=== PATIENT | female | born 1945 | race Caucasian/White ===

== ENCOUNTER 2022-08-25 14:01 | Emergency (ER) | payer MEDICARE, OTHER ==
[2022-08-25 14:26] LABS: BILIRUBIN,URINE NEGATIVE (NEGATIVE); CLARITY,URINE CLEAR; COLOR,URINE YELLOW; GLUCOSE, URINE (UA) NEGATIVE (NEGATIVE); KETONES,URINE NEGATIVE (NEGATIVE); LEUKOCYTE ESTERASE ,URINE NEGATIVE (NEGATIVE); NITRITE,URINE NEGATIVE (NEGATIVE); PROTEIN,URINE NEGATIVE (NEGATIVE)
[2022-08-25 14:29] VITALS: BP_SYST 121; BP_SYST 139; BP_SYST 161; BP_DIAS 71; BP_DIAS 73; BP_DIAS 74
[2022-08-25 14:30] LABS: BACTERIA,URINE TRACE /HPF; RBC,URINE RARE /HPF
[2022-08-25] MEDS ORDERED: NS IV 1000 ML 1,000 ML IV STA (14:38)
[2022-08-25] MEDS ORDERED: KETOROLAC 15 MG/ML VIAL IVP STA (14:38)
[2022-08-25 14:47] LABS: BASOPHILS % (AUTO) 0 % (0-10); EOSINOPHILS % (AUTO) 1 % (0-10); HEMATOCRIT 46 % (35-52); HEMOGLOBIN 15.4 g/dL (11.5-16.0); LYMPHOCYTES # (AUTO) 2.2 10^3/uL (1.0-4.0); LYMPHOCYTES % (AUTO) 26 % (12-44); MEAN CORPUSCULAR HEMOGLOBIN 29 pg (25-34); MEAN CORPUSCULAR HGB CONC 33 g/dL (32-36); MEAN CORPUSCULAR VOLUME 86 fL (80-99); MEAN PLATELET VOLUME 12.6 fL (9.0-12.2); MONOCYTES # (AUTO) 0.8 10^3/uL (0.0-1.0); MONOCYTES % (AUTO) 10 % (0-12); NEUTROPHILS # (AUTO) 5.3 10^3/uL (1.8-7.8); NEUTROPHILS % (AUTO) 63 % (42-75); PLATELET COUNT 199 10^3/uL (130-400); WHITE BLOOD COUNT 8.3 10^3/uL (4.3-11.0)
[2022-08-25 14:49] LABS: CALCIUM 10.8 MG/DL (8.5-10.1); CREATININE SERUM 0.9 MG/DL (0.60-1.30); POTASSIUM 3.1 MMOL/L (3.6-5.0)
[2022-08-25 14:50] LABS: ALBUMIN 4.4 GM/DL (3.2-4.5); BILIRUBIN,TOTAL 0.9 MG/DL (0.1-1.0); TOTAL PROTEIN 7.6 GM/DL (6.4-8.2)
[2022-08-25 14:53] LABS: INR 1.1 (0.8-1.4); PROTHROMBIN TIME PATIENT 14.3 SEC (12.2-14.7)
[2022-08-25 14:58] LABS: MAGNESIUM 1.2 MG/DL (1.6-2.4)
--- NOTE | 2022-08-25 15:04 | ED General ---
General Chief Complaint: Back Problems Stated Complaint: ARRHYTHMIA; LETHARGY; BACK PAIN Nursing Triage Note: CHRONIC BACK PAIN AND WAS SENT HERE FROM URGENT CARE FOR AN IRREGULAR HEART RHYTHM. PT HAS MUTLIPLE CHRNOIC ISSUES SHE IS BRINGING UP. Source of Information: Patient, Family (daughter) History of Present Illness Date Seen by Provider: Aug 25, 2022 Time Seen by Provider: 14:05 Initial Comments 77-year-old female presenting with complaints of 1 week of right "kidney" pain. She has chronic back pain but states this pain is different. She also has been coughing for the last week but states that she feels like that is improving. She has not taken anything for the kidney pain as she states that it comes and goes. She denies any burning or pain with urination. She has chronic back pain that is worse with laying flat and certain movements. Timing/Duration: 1 Week Severity: Severe Modifying Factors: worse with Movement; improves with Other (pain in kidney area comes and goes sporadically without reason) Associated Systoms: No Chest Pain; Cough; No Diaphoresis; Fever/Chills; No Loss of Appetite; Malaise; No Nausea/Vomiting, No Rash, No Seizure; Shortness of Air; No Syncope; Weakness Allergies and Home Medications Allergies Coded Allergies: naproxen (Verified Allergy, Severe, Rash, 08/25/22) Patient Home Medication List Home Medication List Reviewed: Yes Review of Systems Review of Systems Constitutional: see HPI EENTM: nose congestion Respiratory: cough (improving), short of breath; No stridor, No wheezing Cardiovascular: No chest pain Gastrointestinal: No nausea, No vomiting Genitourinary: see HPI, frequency, incontinence (chronic) Musculoskeletal: see HPI Skin: No change in color, No rash Psychiatric/Neurological: Anxiety Past Xjbzpzv-Hauagw-Ozhcjr Hx Patient Social History Tobacco Use?: No Use of E-Cig and/or Vaping dev: No Substance use?: No Alcohol Use?: No Pt feels they are or have been: No Past Medical History Surgery/Hospitalization HX: Chronic back pain, anxiety Physical Exam Vital Signs Vital Signs - First Documented 08/25/22 14:08 Temp 36.4 Pulse 88 Resp 18 B/P (MAP) 161/73 (102) Pulse Ox 98 O2 Delivery Room Air Capillary Refill : Less Than 3 Seconds Height, Weight, BMI Height: '" Weight: lbs. oz. kg; BMI Method: General Appearance: No Apparent Distress, Obese, Other (complaint of pain with minimal activity such as placing tape to secure IV and she cried out that she was being poked with needle) HEENT: PERRL/EOMI, Pharynx Normal, Moist Mucous Membranes Neck: Full Range of Motion, Normal Inspection, Non Tender, Supple Respiratory: Chest Non Tender, Lungs Clear, Normal Breath Sounds, No Accessory Muscle Use, No Respiratory Distress Cardiovascular: Regular Rate, Rhythm, No Edema, Normal Peripheral Pulses Gastrointestinal: Normal Bowel Sounds, No Pulsatile Mass, Non Tender, Soft Rectal: Deferred Back: No Vertebral Tenderness, CVA Tenderness (L) Extremity: Normal Capillary Refill, Normal Inspection, No Pedal Edema Neurologic/Psychiatric: Alert, Oriented x3 Skin: Normal Color, Warm/Dry Progress/Results/Core Measures Suspected Sepsis SIRS Temperature: Pulse: 102 Respiratory Rate: 18 Laboratory Tests 08/25/22 14:20: White Blood Count 8.3 Blood Pressure 121 /74 Mean: 90 Laboratory Tests 08/25/22 14:20: Creatinine 0.90, INR Comment 1.1, Platelet Count 199, Total Bilirubin 0.9 Results/Orders Lab Results Laboratory Tests Test 08/25/22 14:20 08/25/22 14:54 Range/Units White Blood Count 8.3 4.3-11.0 10^3/uL Red Blood Count 5.38 H 3.80-5.11 10^6/uL Hemoglobin 15.4 11.5-16.0 g/dL Hematocrit 46 35-52 % Mean Corpuscular Volume 86 80-99 fL Mean Corpuscular Hemoglobin 29 25-34 pg Mean Corpuscular Hemoglobin Concent 33 32-36 g/dL Red Cell Distribution Width 12.8 10.0-14.5 % Platelet Count 199 130-400 10^3/uL Mean Platelet Volume 12.6 H 9.0-12.2 fL Immature Granulocyte % (Auto) 0 % Neutrophils (%) (Auto) 63 42-75 % Lymphocytes (%) (Auto) 26 12-44 % Monocytes (%) (Auto) 10 0-12 % Eosinophils (%) (Auto) 1 0-10 % Basophils (%) (Auto) 0 0-10 % Neutrophils # (Auto) 5.3 1.8-7.8 10^3/uL Lymphocytes # (Auto) 2.2 1.0-4.0 10^3/uL Monocytes # (Auto) 0.8 0.0-1.0 10^3/uL Eosinophils # (Auto) 0.0 0.0-0.3 10^3/uL Basophils # (Auto) 0.0 0.0-0.1 10^3/uL Immature Granulocyte # (Auto) 0.0 0.0-0.1 10^3/uL Prothrombin Time 14.3 12.2-14.7 SEC INR Comment 1.1 0.8-1.4 Activated Partial Thromboplast Time 29 24-35 SEC Urine Color YELLOW Urine Clarity CLEAR Urine pH 6.0 5-9 Urine Specific [place] <=1.005 1.016-1.022 Urine Protein NEGATIVE NEGATIVE Urine Glucose (UA) NEGATIVE NEGATIVE Urine Ketones NEGATIVE NEGATIVE Urine Nitrite NEGATIVE NEGATIVE Urine Bilirubin NEGATIVE NEGATIVE Urine Urobilinogen 0.2 < = 1.0 MG/DL Urine Leukocyte Esterase NEGATIVE NEGATIVE Urine RBC (Auto) NEGATIVE NEGATIVE Urine RBC RARE /HPF Urine WBC 5-10 H /HPF Urine Crystals NONE /LPF Urine Bacteria TRACE /HPF Urine Casts PRESENT /LPF Urine Hyaline Casts 5-10 H /LPF Urine Mucus LARGE H /LPF Urine Culture Indicated YES Sodium Level 138 135-145 MMOL/L Potassium Level 3.1 L 3.6-5.0 MMOL/L Chloride Level 100 98-107 MMOL/L Carbon Dioxide Level 26 21-32 MMOL/L Anion Gap 12 5-14 MMOL/L Blood Urea Nitrogen 13 7-18 MG/DL Creatinine 0.90 0.60-1.30 MG/DL Estimat Glomerular Filtration Rate 67 BUN/Creatinine Ratio 14 Glucose Level 110 H 70-105 MG/DL Calcium Level 10.8 H 8.5-10.1 MG/DL Corrected Calcium 10.5 H 8.5-10.1 MG/DL Magnesium Level 1.2 L 1.6-2.4 MG/DL Total Bilirubin 0.9 0.1-1.0 MG/DL Aspartate Amino Transf (AST/SGOT) 27 5-34 U/L Alanine Aminotransferase (ALT/SGPT) 24 0-55 U/L Alkaline Phosphatase 117 40-136 U/L Troponin I < 0.30 <0.30 NG/ML Pro-B-Type Natriuretic Peptide 259.4 <450.0 PG/ML Total Protein 7.6 6.4-8.2 GM/DL Albumin 4.4 3.2-4.5 GM/DL Lipase 25 8-78 U/L Influenza Type A (RT-PCR) Detected H Not Detecte Influenza Type B (RT-PCR) Not Detected Not Detecte SARS-CoV-2 RNA (RT-PCR) Not Detected Not Detecte My Orders Orders - ZORAN CRAWFORD MD Ua Culture If Indicated (08/25/22 14:13) Ekg Tracing (08/25/22 14:13) Urine Culture (08/25/22 14:20) Cbc With Automated Diff (08/25/22 14:38) Magnesium (08/25/22 14:38) Comprehensive Metabolic Panel (08/25/22 14:38) Protime With Inr (08/25/22 14:38) Partial Thromboplastin Time (08/25/22 14:38) O2 (08/25/22 14:38) Monitor-Rhythm Ecg Trace Only (08/25/22 14:38) Ed Iv/Invasive Line Start (08/25/22 14:38) Lipase (08/25/22 14:38) Troponin I Fs (08/25/22 14:38) Probnp Fs (08/25/22 14:38) Ct Chest/Abdomen/Pelvis Wo (08/25/22 14:38) Ketorolac Injection (Toradol Injection) (08/25/22 14:38) Ns Iv 1000 Ml (Sodium Chloride 0.9%) (08/25/22 14:38) Covid 19 Inhouse Test (08/25/22 14:38) Influenza A And B By Pcr (08/25/22 14:38) Magnesium 1 Gm/100 Ml Ivpb (Magnesium Cee (08/25/22 15:25) Ceftriaxone 1 Gm Pre-Mix (Rocephin 1 Gm (08/25/22 15:25) Vital Signs/I&O 08/25/22 08/25/22 08/25/22 14:08 14:29 17:35 Temp 36.4 36.4 Pulse 88 94 92 93 102 Resp 18 18 B/P (MAP) 161/73 (102) 161/73 (102) 119/68 139/71 (93) 121/74 (90) Pulse Ox 98 98 O2 Delivery Room Air Room Air Capillary Refill : Less Than 3 Seconds Blood Pressure Mean: 90 Progress Note #1: Progress Note Obtain labs and urine as well as Covid/Influenza swab. Administer normal saline 1 L IV fluid bolus for hydration. Toradol for right CVA pain. CT scan of the chest abdomen and pelvis without contrast as she was complaining of shortness of breath and dyspnea on exertion as well as pain in her right flank. Differential diagnosis includes electrolyte imbalance, sepsis, UTI, kidney stone, influenza, COVID, pneumonia, heart failure, myocardial infarction Progress Note #2: Progress Note CBC was stable without acute significant normality. Chemistry did not show acute significant abnormality to account for symptoms. She did have a low magnesium of 1.2 which may contribute to her weakness and fatigue. We will supplement her magnesium with 1 g IV here and have her take oral pills at home. Her urinalysis did show some signs for a UTI. Patient states that she is currently on an antibiotic and has 2 more days of it. We will have her finish those antibiotics and await the culture to see if she would need a different antibiotic. Her influenza came back positive and COVID was negative. She was positive for influenza A. She has had symptoms for more than 48 hours and would not be in a window where she would benefit from Tamiflu or antivirals. CT scan imaging did not show any acute process. Counseled patient and family on results and reviewed return and follow-up precautions. Diagnostic Imaging Diagonstic Imaging: CT Plain Films/CT/US/NM/MRI: chest, abdomen, pelvis Comments NAME: TY PRICE [facility] REC#: [id number] PT STATUS: REG ER : 1945 PHYSICIAN: ZORAN CRAWFORD MD ADMIT DATE: 08/25/22/ER FS Draft Date of Exam:08/25/22 CT CHEST/ABDOMEN/PELVIS WO PROCEDURE: CT chest, abdomen, and pelvis without contrast. TECHNIQUE: Multiple contiguous axial images were obtained through the chest, abdomen, and pelvis without the use of intravenous contrast. Auto Exposure Controls were utilized during the CT exam to meet ALARA standards for radiation dose reduction. INDICATION: Shortness of breath. Right flank pain. COMPARISON: None available. FINDINGS: CT CHEST: No abnormality in the trachea. There is no pneumonia or edema. A small amount of compressive atelectasis is present in the medial aspect of the right lower lobe due to adjacent thoracic osteophytes. No suspicious pulmonary nodules. Thyroid is normal. No supraclavicular or axillary lymphadenopathy. No mediastinal or hilar lymphadenopathy. Heart is normal in size with trace pericardial fluid, likely physiologic. Mild coronary artery calcifications. Normal caliber thoracic aorta. Normal regional skeleton. CT ABDOMEN AND PELVIS: No free intraperitoneal air or fluid. The unenhanced liver, gallbladder, spleen and pancreas are all normal in appearance. No adrenal mass. Punctate 2 mm stone in the upper pole of the right kidney is present. No ureteral stone or obstructive uropathy on either side. The urinary bladder is normal, where seen. Stomach is partially filled with air and fluid. There is no bowel obstruction. Normal appendix. No colitis or diverticulitis. Normal caliber abdominal aorta. No abdominal or pelvic lymphadenopathy. No concerning focal osseous lesion. IMPRESSION: No acute abnormality in the chest, abdomen or pelvis. Dictated on workstation # [id number] Dict: 08/25/22 1531 Trans: 08/25/22 1537 [facility] [id number] Interpreted by: NORMA LLOYD MD Electronically signed by: Reviewed: Reviewed by Me Departure Impression Primary Impression: Influenza A Additional Impressions: Cystitis without hematuria Hypomagnesemia Disposition: HOME, SELF-CARE Condition: Stable Departure-Patient Inst. Decision time for Depature: 16:34 Referrals: [facility] Patient Instructions: Low Magnesium Level, Flu, Adult ED, Urinary Tract Infection, Adult ED Add. Discharge Instructions: Finish out your course of antibiotics for UTI. If the culture of your urine from today grows out bacteria showing you need a different antibiotic then you will get a call Friday or Friday to see about switching medicine. Otherwise the medicine you finish on Friday will take care of the infection. Stay well hydrated and get plenty of rest. Take the Magnesium supplement you have at home. check with your doctor for retest of Magnesium level in 1-2 weeks All discharge instructions reviewed with patient and/or family. Voiced understanding. ZORAN CRAWFORD MD Aug 25, 2022 15:04
[2022-08-25] MEDS ORDERED: cefTRIAXone 1 GM PRE-MIX 50 ML IV STA (15:25)
[2022-08-25] MEDS ORDERED: MAGNESIUM 1 GM/100 ML IVPB 100 ML IV STA (15:25)
--- NOTE | 2022-08-25 15:37 | Diagnostic Imaging Report ---
PROCEDURE: CT chest, abdomen, and pelvis without contrast. TECHNIQUE: Multiple contiguous axial images were obtained through the chest, abdomen, and pelvis without the use of intravenous contrast. Auto Exposure Controls were utilized during the CT exam to meet ALARA standards for radiation dose reduction. INDICATION: Shortness of breath. Right flank pain. COMPARISON: None available. FINDINGS: CT CHEST: No abnormality in the trachea. There is no pneumonia or edema. A small amount of compressive atelectasis is present in the medial aspect of the right lower lobe due to adjacent thoracic osteophytes. No suspicious pulmonary nodules. Thyroid is normal. No supraclavicular or axillary lymphadenopathy. No mediastinal or hilar lymphadenopathy. Heart is normal in size with trace pericardial fluid, likely physiologic. Mild coronary artery calcifications. Normal caliber thoracic aorta. Normal regional skeleton. CT ABDOMEN AND PELVIS: No free intraperitoneal air or fluid. The unenhanced liver, gallbladder, spleen and pancreas are all normal in appearance. No adrenal mass. Punctate 2 mm stone in the upper pole of the right kidney is present. No ureteral stone or obstructive uropathy on either side. The urinary bladder is normal, where seen. Stomach is partially filled with air and fluid. There is no bowel obstruction. Normal appendix. No colitis or diverticulitis. Normal caliber abdominal aorta. No abdominal or pelvic lymphadenopathy. No concerning focal osseous lesion. IMPRESSION: No acute abnormality in the chest, abdomen or pelvis. Dictated by: Dictated on workstation # [id number]
[2022-08-25 17:35] VITALS: BP 119/68
== END 2022-08-25 17:38 | disposition home or self-care (01) ==
LOC: EDBD 14:04 → ER FS 14:04
DX: J10.1 Influenza due to other identified influenza virus with other respiratory manifestations (principal); N30.90 Cystitis, unspecified without hematuria; E83.42 Hypomagnesemia; E66.9 Obesity, unspecified; Z20.822 Contact with and (suspected) exposure to COVID-19
CPT/HCPCS: 36415; 71250; 74176; 80053; 81000; 83690; 83735; 83880; 84484; 85025; 85610; 85730; 87088; 87636; 93005; 93041

== ENCOUNTER → 2022-10-10 | Outpatient (CLI) | payer MEDICARE ==
--- NOTE | 2022-10-10 16:07 | Diagnostic Imaging Report ---
Indication: Chronic right knee pain. Time of Exam: 11:26 AM 4 views right knee were obtained. There is medial and patellofemoral compartment degenerative change with joint space narrowing and marginal spurring. There is some chondrocalcinosis of lateral compartment. There is spurring of the tibial spines. No fracture, dislocation or effusion is identified. Impression: Degenerative changes. No acute bony abnormality is detected. Dictated by: Dictated on workstation # [id number]
== END ==
LOC: RAD FS 11:06
PROVIDERS: ATTEND Nurse Practitioner
DX: M17.11 Unilateral primary osteoarthritis, right knee (principal)
CPT/HCPCS: 73562; 73564

== ENCOUNTER 2022-12-22 14:38 | Emergency (ER) | payer MEDICARE ==
[~2022-12-22] VITALS: Ht 175.3 cm; Wt 97.5 kg
[2022-12-22] MEDS ORDERED: LACTATED RINGERS 1,000 ML IV STA (14:51)
[2022-12-22 14:55] LABS: BASOPHILS # (AUTO) 0.1 10^3/uL (0.0-0.1); BASOPHILS % (AUTO) 1 % (0-10); EOSINOPHILS % (AUTO) 0 % (0-10); HEMATOCRIT 45 % (35-52); HEMOGLOBIN 15.3 g/dL (11.5-16.0); LYMPHOCYTES # (AUTO) 2.1 10^3/uL (1.0-4.0); LYMPHOCYTES % (AUTO) 23 % (12-44); MEAN CORPUSCULAR HEMOGLOBIN 29 pg (25-34); MEAN CORPUSCULAR HGB CONC 34 g/dL (32-36); MEAN CORPUSCULAR VOLUME 83 fL (80-99); MEAN PLATELET VOLUME 12.9 fL (9.0-12.2); MONOCYTES # (AUTO) 0.6 10^3/uL (0.0-1.0); MONOCYTES % (AUTO) 7 % (0-12); NEUTROPHILS # (AUTO) 6.6 10^3/uL (1.8-7.8); NEUTROPHILS % (AUTO) 70 % (42-75); PLATELET COUNT 202 10^3/uL (130-400); WHITE BLOOD COUNT 9.5 10^3/uL (4.3-11.0)
--- NOTE | 2022-12-22 14:57 | ED Cardiac General ---
History of Present Illness General Chief Complaint: Cardiac/General Problems Stated Complaint: A-FIB Source: patient, RN/MD Exam Limitations: no limitations History of Present Illness Date Seen by Provider: Dec 22, 2022 Time Seen by Provider: 14:42 Initial Comments 77-year-old female with past medical history of paroxysmal A-fib on diltiazem and no anticoagulation, hypertension, hyperlipidemia coming in as referral from walk-in clinic due to concerns for A-fib with RVR. The patient was diagnosed initially with A-fib in 2019, and has been in sinus rhythm as far as she knows since then. [place] short of breath this morning and went to walk-in clinic and her heart rate was in the 130s in A-fib. Denies any chest pain, focal weakness or numbness, vision changes, abdominal pain, nausea, vomiting, diarrhea, or any other concerns. She states she was diagnosed with UTI for dysuria roughly 4 days ago, the urine culture came back and they changed her from Bactrim to Macrobid yesterday. Otherwise denying any other acute complaints. Of note, the patient was supposed to be on Eliquis, but could not afford it. She did take her diltiazem this morning. Allergies and Home Medications Allergies Coded Allergies: naproxen (Verified Allergy, Severe, Rash, 08/25/22) Patient Home Medication List Home Medication List Reviewed: Yes Apixaban (Eliquis) 5 Mg Tablet, 5 MG PO BID Prescribed by: MARGARET SANTILLAN on 12/22/22 6212 Review of Systems Review of Systems Constitutional: No fever EENTM: No Symptoms Reported Respiratory: See HPI Cardiovascular: See HPI Gastrointestinal: No Symptoms Reported Genitourinary: No Symptoms Reported Musculoskeletal: no symptoms reported Skin: no symptoms reported Psychiatric/Neurological: No Symptoms Reported Endocrine: No Symptoms Reported Hematologic/Lymphatic: No Symptoms Reported All Other Systems Reviewed Negative Unless Noted: Yes Past Mzjlfky-Wsxayx-Vecghm Hx Patient Social History Tobacco Use?: No Past Medical History Surgery/Hospitalization HX: Chronic back pain, anxiety, double mastectomy Surgeries: Yes Physical Exam Vital Signs Vital Signs - First Documented 12/22/22 14:40 Temp 36.8 Pulse 129 Resp 18 B/P (MAP) 147/102 (117) Pulse Ox 95 O2 Delivery Room Air Capillary Refill : Height, Weight, BMI Height: '" Weight: lbs. oz. kg; BMI Method: General Appearance: No Apparent Distress, WD/WN HEENT: PERRL/EOMI, Normal ENT Inspection, Pharynx Normal Neck: Full Range of Motion, Normal Inspection, Non Tender, Supple Respiratory: Chest Non Tender, Lungs Clear, Normal Breath Sounds, No Accessory Muscle Use, No Respiratory Distress Cardiovascular: No Edema, Normal Peripheral Pulses, Irregularly Irregular, Tachycardia Gastrointestinal: Normal Bowel Sounds, Non Tender, Soft; No Distended, No Guarding Extremity: Normal Capillary Refill, Normal Inspection, Normal Range of Motion, Non Tender, No Calf Tenderness, No Pedal Edema Neurologic/Psychiatric: Alert, No Motor/Sensory Deficits, Normal Mood/Affect Skin: Normal Color, Warm/Dry Lymphatic: No Adenopathy Progress/Results/Core Measures Results/Orders Lab Results Laboratory Tests Test 12/22/22 14:45 Range/Units White Blood Count 9.5 4.3-11.0 10^3/uL Red Blood Count 5.37 H 3.80-5.11 10^6/uL Hemoglobin 15.3 11.5-16.0 g/dL Hematocrit 45 35-52 % Mean Corpuscular Volume 83 80-99 fL Mean Corpuscular Hemoglobin 29 25-34 pg Mean Corpuscular Hemoglobin Concent 34 32-36 g/dL Red Cell Distribution Width 12.7 10.0-14.5 % Platelet Count 202 130-400 10^3/uL Mean Platelet Volume 12.9 H 9.0-12.2 fL Immature Granulocyte % (Auto) 0 % Neutrophils (%) (Auto) 70 42-75 % Lymphocytes (%) (Auto) 23 12-44 % Monocytes (%) (Auto) 7 0-12 % Eosinophils (%) (Auto) 0 0-10 % Basophils (%) (Auto) 1 0-10 % Neutrophils # (Auto) 6.6 1.8-7.8 10^3/uL Lymphocytes # (Auto) 2.1 1.0-4.0 10^3/uL Monocytes # (Auto) 0.6 0.0-1.0 10^3/uL Eosinophils # (Auto) 0.0 0.0-0.3 10^3/uL Basophils # (Auto) 0.1 0.0-0.1 10^3/uL Immature Granulocyte # (Auto) 0.0 0.0-0.1 10^3/uL Prothrombin Time 12.8 12.2-14.7 SEC INR Comment 0.9 0.8-1.4 Activated Partial Thromboplast Time 31 24-35 SEC Sodium Level 137 135-145 MMOL/L Potassium Level 4.5 3.6-5.0 MMOL/L Chloride Level 102 98-107 MMOL/L Carbon Dioxide Level 22 21-32 MMOL/L Anion Gap 13 5-14 MMOL/L Blood Urea Nitrogen 15 7-18 MG/DL Creatinine 1.17 0.60-1.30 MG/DL Estimat Glomerular Filtration Rate 49 BUN/Creatinine Ratio 13 Glucose Level 217 H 70-105 MG/DL Calcium Level 11.6 H 8.5-10.1 MG/DL Corrected Calcium 11.4 H 8.5-10.1 MG/DL Magnesium Level 1.4 L 1.6-2.4 MG/DL Total Bilirubin 0.7 0.1-1.0 MG/DL Aspartate Amino Transf (AST/SGOT) 14 5-34 U/L Alanine Aminotransferase (ALT/SGPT) 13 0-55 U/L Alkaline Phosphatase 159 H 40-136 U/L Troponin I < 0.30 <0.30 NG/ML Pro-B-Type Natriuretic Peptide 484.2 H <450.0 PG/ML Total Protein 7.7 6.4-8.2 GM/DL Albumin 4.3 3.2-4.5 GM/DL Lipase 20 8-78 U/L My Orders Orders - MARGARET SANTILLAN MD Cbc With Automated Diff (12/22/22 14:49) Magnesium (12/22/22 14:49) Chest 1 View Ap/Pa Only (12/22/22 14:49) Ekg Tracing (12/22/22 14:49) Comprehensive Metabolic Panel (12/22/22 14:49) Protime With Inr (12/22/22 14:49) Partial Thromboplastin Time (12/22/22 14:49) O2 (12/22/22 14:49) Monitor-Rhythm Ecg Trace Only (12/22/22 14:49) Ed Iv/Invasive Line Start (12/22/22 14:49) Lipase (12/22/22 14:49) Troponin I Fs (12/22/22 14:49) Probnp Fs (12/22/22 14:49) Diltiazem Injection (Cardizem Injection) (12/22/22 15:00) Ns (Ivpb) (Sodium C... W/Diltiazem Iv Fo (12/22/22 14:49) Apixaban Tablet (Eliquis Tablet) (12/22/22 15:00) Lactated Ringers (Lr 1000 Ml Iv Solution (12/22/22 14:51) Magnesium 1 Gm/100 Ml Ivpb (Magnesium Cee (12/22/22 15:00) Diltiazem Cd 24 Hr Capsule (Cardizem Cd (12/22/22 15:27) Medications Given in ED Current Medications Medications Dose Ordered Sig/Nabeel Route Start Time Stop Time Status Last Admin Dose Admin Apixaban 5 mg ONCE ONCE PO 12/22/22 15:00 12/22/22 15:01 DC 12/22/22 15:03 5 MG Diltiazem HCl 20 mg ONCE ONCE IVP 12/22/22 15:00 12/22/22 15:01 DC 12/22/22 15:03 20 MG Magnesium Sulfate/ Dextrose 100 ml @ 100 mls/hr ONCE ONCE IV 12/22/22 15:00 12/22/22 15:59 12/22/22 15:04 100 MLS/HR Vital Signs/I&O 12/22/22 12/22/22 14:40 15:03 Temp 36.8 Pulse 129 111 Resp 18 B/P (MAP) 147/102 (117) 119/72 Pulse Ox 95 O2 Delivery Room Air Progress Progress Note : Progress Note 77-year-old female with above history coming in as referral for A-fib with RVR. I personally took report and discussed the case with the nurse practitioner at the walk-in clinic. There her heart rate was 136 on the EKG, blood pressure 101/76, and the patient was talking without difficulty. On arrival here heart rate between 101 20s with blood pressure 120s over 70s. EKG with no acute ischemic changes on my interpretation. Portable chest x-ray with no obvious pneumonia, pneumothorax, or pleural effusion. She has no history of heart failure, CKD or liver disease. She was given a bolus of IV fluids after an IV was placed. She was also given IV magnesium. We will start her on a diltiazem drip after a bolus. She is also given oral Eliquis. It sounds like the patient was very symptomatic this morning, and typically can feel when she is in A-fib. Highly likely she has only been in A-fib for several hours. Basic labs here with magnesium slightly low at 1.4, normal creatinine, negative troponin. Her heart rate came down to the 60s and 70s after the diltiazem bolus, she was given oral diltiazem and maintained normal heart rate. I suspect the patient was in A-fib due to the low magnesium as well as the ER and infection. Otherwise stable, heart rate controlled, prescription sent to apothecary where they can help with the cost of it for Eliquis. I believe she is otherwise stable for discharge with outpatient follow-up. She was sent home with strict return precautions. Initial ECG Impression Date: Dec 22, 2022 Initial ECG Impression Time: 14:42 Initial ECG Rate: 104 Initial ECG Rhythm: A Fib/Flutter Comment Narrow QRS, normal axis, no significant ST changes or T wave abnormalities Diagnostic Imaging Diagonstic Imaging: Xray (chest) Comments [facility] [place] NAME: TY PRICE [facility] REC#: [id number] PT STATUS: REG ER : 1945 PHYSICIAN: MARGARET SANTILLAN MD ADMIT DATE: 12/22/22/ER FS Draft Date of Exam:12/22/22 CHEST 1 VIEW AP/PA ONLY INDICATION: Shortness of breath. COMPARISON: CT dated 08/25/2022. TECHNIQUE: Single radiograph of the chest dated December 22, 2022. FINDINGS: The cardiac silhouette is mildly enlarged. No significant pulmonary vascular congestion. The lungs are clear of focal pulmonary opacity. No pleural effusion. No pneumothorax. Cameron right curvature of the spine with scattered osseous degenerative changes. No acute osseous abnormality IMPRESSION: Mild cardiomegaly without pulmonary vascular congestion. Dictated on workstation # [id number] Dict: 12/22/22 1544 Trans: 12/22/22 1550 [facility] [id number] Interpreted by: LAKIA SCOTT MD Electronically signed by: Departure Impression Primary Impression: Atrial fibrillation with RVR Disposition: 01 HOME, SELF-CARE Condition: Improved Departure-Patient Inst. Decision time for Depature: 15:59 Referrals: VANNA KAUR MD (PCP) Primary Care Physician Patient Instructions: Atrial Fibrillation and Atrial Flutter ED Add. Discharge Instructions: You were in afib with a fast heart rate in the ER. We gave you magnesium in your IV since it was low and an IV form of the diltiazem you take already to help slow your heart rate. We sent a script for the blood thinner Eliquis to [facility]. They should help with this if you can't afford it since you are a [facility] patient. You should also talk with your doctor about vaginal estrogen for UTI prevention. It is safe in people even with a history of breast cancer. Scripts Apixaban (Eliquis) 5 Mg Tablet 5 MG PO BID for 30 Days, #60 TAB Prov: MARGARET SANTILLAN MD 12/22/22 MARGARET SANTILLAN MD Dec 22, 2022 14:57
[2022-12-22] MEDS ORDERED: APIXABAN 5 MG (ELIQUIS) TABLET PO ONE (15:00)
[2022-12-22] MEDS ORDERED: MAGNESIUM 1 GM/100 ML IVPB 100 ML IV ONE (15:00)
[2022-12-22 15:06] LABS: INR 0.9 (0.8-1.4); PROTHROMBIN TIME PATIENT 12.8 SEC (12.2-14.7)
[2022-12-22 15:15] LABS: CREATININE SERUM 1.17 MG/DL (0.60-1.30); POTASSIUM 4.5 MMOL/L (3.6-5.0)
[2022-12-22 15:16] LABS: ALBUMIN 4.3 GM/DL (3.2-4.5); BILIRUBIN,TOTAL 0.7 MG/DL (0.1-1.0); CALCIUM 11.6 MG/DL (8.5-10.1); MAGNESIUM 1.4 MG/DL (1.6-2.4); TOTAL PROTEIN 7.7 GM/DL (6.4-8.2)
[2022-12-22] MEDS ORDERED: APIX5TAB PO (15:19)
[2022-12-22] MEDS ORDERED: dilTIAZem120 MG (CARDIZEM CD) CAP PO STA (15:27)
--- NOTE | 2022-12-22 15:51 | Diagnostic Imaging Report ---
INDICATION: Shortness of breath. COMPARISON: CT dated 08/25/2022. TECHNIQUE: Single radiograph of the chest dated December 22, 2022. FINDINGS: The cardiac silhouette is mildly enlarged. No significant pulmonary vascular congestion. The lungs are clear of focal pulmonary opacity. No pleural effusion. No pneumothorax. [place] right curvature of the spine with scattered osseous degenerative changes. No acute osseous abnormality IMPRESSION: Mild cardiomegaly without pulmonary vascular congestion. Dictated by: Dictated on workstation # [id number]
[2022-12-22 16:15] VITALS: BP 115/82
== END 2022-12-22 16:15 | disposition home or self-care (01) ==
LOC: EDUNIT# 14:38 → ER FS 14:39
DX: I48.91 Unspecified atrial fibrillation (principal); E83.42 Hypomagnesemia; N39.0 Urinary tract infection, site not specified; I10 Essential (primary) hypertension; Z28.310 Unvaccinated for COVID-19; Z79.899 Other long term (current) drug therapy
CPT/HCPCS: 36415; 71045; 80053; 83690; 83735; 83880; 84484; 85025; 85610; 85730; 93005; 93041

== ENCOUNTER 2022-12-27 13:23 | Emergency (ER) | payer MEDICARE ==
[~2022-12-27] VITALS: Ht 175 cm; Wt 97.0 kg
[~2022-12-27 13:23] MED LIST: APIX5TAB PO
[2022-12-27 13:52] LABS: BASOPHILS # (AUTO) 0.1 10^3/uL (0.0-0.1); BASOPHILS % (AUTO) 1 % (0-10); EOSINOPHILS # (AUTO) 0.1 10^3/uL (0.0-0.3); EOSINOPHILS % (AUTO) 1 % (0-10); HEMATOCRIT 47 % (35-52); HEMOGLOBIN 15.8 g/dL (11.5-16.0); LYMPHOCYTES # (AUTO) 2.6 10^3/uL (1.0-4.0); LYMPHOCYTES % (AUTO) 29 % (12-44); MEAN CORPUSCULAR HEMOGLOBIN 29 pg (25-34); MEAN CORPUSCULAR HGB CONC 34 g/dL (32-36); MEAN CORPUSCULAR VOLUME 85 fL (80-99); MONOCYTES # (AUTO) 0.7 10^3/uL (0.0-1.0); MONOCYTES % (AUTO) 8 % (0-12); NEUTROPHILS # (AUTO) 5.6 10^3/uL (1.8-7.8); NEUTROPHILS % (AUTO) 62 % (42-75); PLATELET COUNT 199 10^3/uL (130-400); WHITE BLOOD COUNT 9.1 10^3/uL (4.3-11.0)
--- NOTE | 2022-12-27 13:53 | ED Cardiac General ---
History of Present Illness General Chief Complaint: Cardiac/General Problems Stated Complaint: AFIB Nursing Triage Note: PT PRESENTS TO ED FROM [facility] WITH C/O "EXTREME SOB" THAT STARTED 5 DAYS AGO. PT WENT TO DR. BERRY'S OFFICE AND WAS FOUND TO BE IN A-FIB. PT DENIES ANY OTHER SX BEYOND THE SOB. PT HAS HAD ONE OTHER KNOWN EPISODE OF A-FIB > 1 YR AGO. Source: patient Exam Limitations: no limitations History of Present Illness Date Seen by Provider: Dec 27, 2022 Time Seen by Provider: 13:38 Initial Comments 77-year-old female presents to the ED with complaints of A-fib. She was sent here from the [facility]. She was seen for the same thing on Friday 12/22 at the [place] emergency department. At that time she was given IV Cardizem and IV magnesium. States that Friday she was feeling a lot better, but Friday she started feeling bad again. States that the A-fib started on Friday, and she has been in it since then. She has a history of A-fib, but is usually in normal sinus rhythm. She was recently diagnosed with a UTI, she is almost completed the antibiotic. She complains of feeling out of breath. Denies chest pain, abdominal pain, nausea, vomiting, diarrhea. Reports her UTI symptoms have improved. She currently takes diltiazem and Eliquis. She recently started the Eliquis this week. Allergies and Home Medications Allergies Coded Allergies: naproxen (Verified Allergy, Severe, Rash, 08/25/22) Patient Home Medication List Home Medication List Reviewed: Yes Apixaban (Eliquis) 5 Mg Tablet, 5 MG PO BID Prescribed by: MARGARET SANTILLAN on 12/22/22 1519 Review of Systems Review of Systems Constitutional: see HPI Past Jpmzlic-Ryqbpw-Elyaaj Hx Patient Social History Tobacco Use?: No Substance use?: Yes Substance type: Marijuana Substance frequency: Rarely Alcohol Use?: No Pt feels they are or have been: No Immunizations Up To Date Influenza Vaccine Up-to-Date: No; Not Current Past Medical History Surgery/Hospitalization HX: Chronic back pain, anxiety, double mastectomy Surgeries: Yes Physical Exam Vital Signs Vital Signs - First Documented 12/27/22 13:27 Pulse 121 Resp 22 B/P (MAP) 139/98 (112) Pulse Ox 97 O2 Delivery Room Air Capillary Refill : Less Than 3 Seconds Height, Weight, BMI Height: '" Weight: lbs. oz. kg; 31.00 BMI Method: General Appearance: No Apparent Distress, WD/WN Neck: Normal Inspection, Supple Respiratory: Lungs Clear, Normal Breath Sounds, No Accessory Muscle Use, No Respiratory Distress Cardiovascular: No Edema, No Gallop, No JVD, No Murmur, Irregularly Irregular Extremity: Normal Inspection, Normal Range of Motion Neurologic/Psychiatric: Alert, Normal Mood/Affect Skin: Normal Color, Warm/Dry Progress/Results/Core Measures Results/Orders Lab Results Laboratory Tests Test 12/27/22 13:33 Range/Units White Blood Count 9.1 4.3-11.0 10^3/uL Red Blood Count 5.49 H 3.80-5.11 10^6/uL Hemoglobin 15.8 11.5-16.0 g/dL Hematocrit 47 35-52 % Mean Corpuscular Volume 85 80-99 fL Mean Corpuscular Hemoglobin 29 25-34 pg Mean Corpuscular Hemoglobin Concent 34 32-36 g/dL Red Cell Distribution Width 12.5 10.0-14.5 % Platelet Count 199 130-400 10^3/uL Mean Platelet Volume 13.0 H 9.0-12.2 fL Immature Granulocyte % (Auto) 0 % Neutrophils (%) (Auto) 62 42-75 % Lymphocytes (%) (Auto) 29 12-44 % Monocytes (%) (Auto) 8 0-12 % Eosinophils (%) (Auto) 1 0-10 % Basophils (%) (Auto) 1 0-10 % Neutrophils # (Auto) 5.6 1.8-7.8 10^3/uL Lymphocytes # (Auto) 2.6 1.0-4.0 10^3/uL Monocytes # (Auto) 0.7 0.0-1.0 10^3/uL Eosinophils # (Auto) 0.1 0.0-0.3 10^3/uL Basophils # (Auto) 0.1 0.0-0.1 10^3/uL Immature Granulocyte # (Auto) 0.0 0.0-0.1 10^3/uL Prothrombin Time 16.4 H 12.2-14.7 SEC INR Comment 1.3 0.8-1.4 Activated Partial Thromboplast Time 41 H 24-35 SEC Sodium Level 143 135-145 MMOL/L Potassium Level 4.0 3.6-5.0 MMOL/L Chloride Level 107 98-107 MMOL/L Carbon Dioxide Level 25 21-32 MMOL/L Anion Gap 11 5-14 MMOL/L Blood Urea Nitrogen 15 7-18 MG/DL Creatinine 0.87 0.60-1.30 MG/DL Estimat Glomerular Filtration Rate 69 BUN/Creatinine Ratio 17 Glucose Level 137 H 70-105 MG/DL Calcium Level 11.3 H 8.5-10.1 MG/DL Corrected Calcium 11.0 H 8.5-10.1 MG/DL Magnesium Level 1.4 L 1.6-2.4 MG/DL Total Bilirubin 0.6 0.1-1.0 MG/DL Aspartate Amino Transf (AST/SGOT) 15 5-34 U/L Alanine Aminotransferase (ALT/SGPT) 17 0-55 U/L Alkaline Phosphatase 141 H 40-136 U/L Troponin I < 0.028 <0.028 NG/ML B-Type Natriuretic Peptide 42.4 <100.0 PG/ML Total Protein 7.7 6.4-8.2 GM/DL Albumin 4.4 3.2-4.5 GM/DL My Orders Orders - BASHIR ROBERT APRN Ekg Tracing (12/27/22 13:28) Cbc With Automated Diff (12/27/22 13:46) Magnesium (12/27/22 13:46) Chest 1 View, Ap/Pa Only (12/27/22 13:46) Comprehensive Metabolic Panel (12/27/22 13:46) Protime With Inr (12/27/22 13:46) Partial Thromboplastin Time (12/27/22 13:46) Monitor-Rhythm Ecg Trace Only (12/27/22 13:46) Ed Iv/Invasive Line Start (12/27/22 13:46) Troponin I [place] (12/27/22 13:46) Bnp [place] (12/27/22 13:46) Magnesium 2 Gm/50 Ml Ivpb (Magnesium 2 G (12/27/22 14:15) Diltiazem Cd 24 Hr Capsule (Cardizem Cd (12/27/22 15:15) Medications Given in ED Current Medications Medications Dose Ordered Sig/Nabeel Route Start Time Stop Time Status Last Admin Dose Admin Diltiazem HCl 120 mg ONCE ONCE PO 12/27/22 15:15 12/27/22 15:16 DC 12/27/22 15:31 120 MG Magnesium Sulfate 50 ml @ 50 mls/hr ONCE ONCE IV 12/27/22 14:15 12/27/22 15:14 DC 12/27/22 14:49 50 MLS/HR Vital Signs/I&O 12/27/22 13:27 Pulse 121 Resp 22 B/P (MAP) 139/98 (112) Pulse Ox 97 O2 Delivery Room Air Blood Pressure Mean: 112 Progress Progress Note #1: Time: 13:53 Progress Note Patient seen and evaluated, resting comfortably bed, no acute distress. Based on exam and symptoms, concern for atrial fibrillation. Work-up initiated including CBC, CMP, troponin, magnesium, EKG, chest x-ray, BNP. Progress Note #2: Time: 14:55 Progress Note NormalLabs and x-ray reviewed. CBC, WBC 9.1, RBC slightly elevated 5.49. CMP shows elevated glucose 137, elevated calcium 11.3, decreased magnesium 1.4. IV magnesium replacement ordered. Troponin negative, BNP 42.4. Coags show elevated PT at 16.4, normal INR at 1.3, APTT elevated 41. Chest x-ray negative for an acute abnormality. We will call Dr. Berry, cardiology, for recommendations. Initial ECG Impression Date: Dec 27, 2022 Initial ECG Impression Time: 13:35 Initial ECG Rate: 111 Initial ECG Rhythm: A Fib/Flutter Initial ECG Intervals: Normal Initial ECG Impression: Atrial Fibrillation Initial ECG Comparisson: Unchanged Diagnostic Imaging Diagonstic Imaging: Xray Plain Films/CT/US/NM/MRI: chest Comments [facility] [place] [place] NAME: TY PRICE [facility] REC#: [id number] PT STATUS: REG ER : 1945 PHYSICIAN: BASHIR ROBERT APRN ADMIT DATE: 12/27/22/ER Draft Date of Exam:12/27/22 CHEST 1 VIEW, AP/PA ONLY INDICATION: Extreme shortness of breath starting 5 days ago. Atrial fibrillation.. TECHNIQUE: Single view chest 1:52 PM. CORRELATION STUDY: 12/22/2022 FINDINGS: The heart size, mediastinal configuration and pulmonary vascularity are within normal limits. The lungs are clear with no consolidating infiltrate. There is no significant effusion or pneumothorax. Rightward curvature thoracic spine with advanced degenerative change. IMPRESSION: 1. Negative for acute abnormality of the chest. Dictated on workstation # [id number] Dict: 12/27/22 1407 Trans: 12/27/22 1408 DO [id number] Interpreted by: ROLAND TITUS DO Electronically signed by: Departure Communication (Admissions) Time/Spoke to Consulting Phy: 14:[address] Berry, cardiology, regarding patient. He recommends discharge and increasing Cardizem to 240 mg daily, and to have her follow-up in clinic on Friday. Impression Primary Impression: Atrial fibrillation Disposition: HOME, SELF-CARE Condition: Stable Departure-Patient Inst. Decision time for Depature: 15:38 Referrals: VANNA KAUR MD (PCP) Primary Care Physician Patient Instructions: Atrial Fibrillation Add. Discharge Instructions: Double your dose of diltiazem to 240 mg once daily. You may take 2 capsules of your current 120 mg tablets at the same time once daily. Call the cardiology clinic on Friday to schedule an appointment. We were unable to get a hold of them today to set up an appointment for you. Discuss with your primary care provider regarding increasing your magnesium dose. Return for elevated heart rate, increase shortness of breath, chest pain, fever, or any other new, concerning, or worsening symptoms. All discharge instructions reviewed with patient and/or family. Voiced underst anding. BASHIR ROBERT APRN Dec 27, 2022 13:53
[2022-12-27 13:57] LABS: ALBUMIN 4.4 GM/DL (3.2-4.5); INR 1.3 (0.8-1.4); PROTHROMBIN TIME PATIENT 16.4 SEC (12.2-14.7)
[2022-12-27 13:59] LABS: CALCIUM 11.3 MG/DL (8.5-10.1)
[2022-12-27 14:00] LABS: TOTAL PROTEIN 7.7 GM/DL (6.4-8.2)
[2022-12-27 14:02] LABS: BILIRUBIN,TOTAL 0.6 MG/DL (0.1-1.0)
[2022-12-27 14:03] LABS: CREATININE SERUM 0.87 MG/DL (0.60-1.30)
[2022-12-27 14:06] LABS: MAGNESIUM 1.4 MG/DL (1.6-2.4)
--- NOTE | 2022-12-27 14:08 | Diagnostic Imaging Report ---
INDICATION: Extreme shortness of breath starting 5 days ago. Atrial fibrillation.. TECHNIQUE: Single view chest 1:52 PM. CORRELATION STUDY: 12/22/2022 FINDINGS: The heart size, mediastinal configuration and pulmonary vascularity are within normal limits. The lungs are clear with no consolidating infiltrate. There is no significant effusion or pneumothorax. Rightward curvature thoracic spine with advanced degenerative change. IMPRESSION: 1. Negative for acute abnormality of the chest. Dictated by: Dictated on workstation # [id number]
[2022-12-27] MEDS ORDERED: MAGNESIUM 2 GM/50 ML IVPB 50 ML IV ONE (14:15)
[2022-12-27] MEDS ORDERED: dilTIAZem120 MG (CARDIZEM CD) CAP PO ONE (15:15)
[2022-12-27 15:54] VITALS: BP 140/94
== END 2022-12-27 15:58 | disposition home or self-care (01) ==
LOC: EDUNIT# 13:23 → ER 13:25
DX: I48.91 Unspecified atrial fibrillation (principal); Z79.01 Long term (current) use of anticoagulants; Z79.899 Other long term (current) drug therapy; Z28.310 Unvaccinated for COVID-19
CPT/HCPCS: 36415; 71045; 80053; 83735; 83880; 84484; 85025; 85610; 85730; 93005; 93041

== ENCOUNTER 2023-01-14 13:38 | Emergency (ER) | payer MEDICARE ==
[~2023-01-14] VITALS: Ht 175 cm; Wt 98.0 kg
[2023-01-14] MEDS ORDERED: NS IV 1000 ML 1,000 ML IV STA (13:51)
--- NOTE | 2023-01-14 14:03 | ED General ---
General Chief Complaint: Cardiac/General Problems Stated Complaint: SOB; DIZZINESS Source of Information: Patient History of Present Illness Date Seen by Provider: Jan 14, 2023 Time Seen by Provider: 13:44 Initial Comments [id number] female presenting with complaints of shortness of breath, dizziness, heart racing. She has known atrial fibrillation and they are trying to adjust her medications to help get better rate control. She is scheduled to see Dr. Berry on FridayJanuary 20 regarding her atrial fibrillation. She has had symptoms of feeling dizzy and short of breath off and on for a while but thought that it was worse today. She had tried to go to urgent care and they referred her to the emergency department because of her atrial fibrillation with RVR. She was reportedly up in the morning 40s for her heart rate. She was also hypertensive at urgent care. She denies chest pain, nausea, vomiting, fever, chills. She has "zinging sensation" in her brain at times along with her dizziness. From review of her last emergency department visit on December 27 they increased her diltiazem up to 240 mg once a day after speaking with Dr. Berry. Timing/Duration: 1-2 Days (Recurrent issue but felt it was worse in last 1-2 days) Severity: Severe Modifying Factors: worse with Movement Associated Systoms: No Chest Pain; Cough (Mild dry intermittent); No Diaphoresis, No Fever/Chills; Malaise; No Nausea/Vomiting, No Rash, No Seizure; Shortness of Air; No Syncope; Weakness (Generalized) Allergies and Home Medications Allergies Coded Allergies: naproxen (Verified Allergy, Severe, Rash, 08/25/22) Patient Home Medication List Home Medication List Reviewed: Yes Apixaban (Eliquis) 5 Mg Tablet, 5 MG PO BID Prescribed by: MARGARET SANTILLAN on 12/22/22 4539 Review of Systems Review of Systems Constitutional: see HPI; No chills; dizziness; No fever EENTM: No ear discharge, No ear pain, No blurred vision, No nose congestion Respiratory: see HPI Cardiovascular: No chest pain Gastrointestinal: abdominal pain (Intermittent epigastric abdominal cramping pain) Genitourinary: No dysuria, No hematuria Musculoskeletal: joint pain (Chronic joint pain from arthritis) Skin: No rash Psychiatric/Neurological: See HPI, Anxiety Past Hxnlanq-Xqpeil-Zgibdh Hx Patient Social History Tobacco Use?: Yes Tobacco type used: Cigarettes Smoking Status: Former Smoker Use of E-Cig and/or Vaping dev: No Substance use?: Yes Substance type: Marijuana Additional substance use comme: GUMMIES Substance frequency: Once in a while Alcohol Use?: Yes Alcohol type: Wine Alcohol Frequency: Once in a while Pt feels they are or have been: No Past Medical History Surgery/Hospitalization HX: Chronic back pain, anxiety, double mastectomy, A-FIB Surgeries: Yes Physical Exam Vital Signs Vital Signs - First Documented 01/14/23 13:42 Temp 36.5 Pulse 101 Resp 16 B/P (MAP) 170/109 (129) Pulse Ox 96 O2 Delivery Room Air Capillary Refill : Height, Weight, BMI Height: '" Weight: lbs. oz. kg; 31.00 BMI Method: General Appearance: No Apparent Distress, WD/WN, Anxious HEENT: PERRL/EOMI, TMs Normal, Normal ENT Inspection, Pharynx Normal, Moist Mucous Membranes Neck: Full Range of Motion, Normal Inspection, Non Tender, Supple Respiratory: Chest Non Tender, Lungs Clear, Normal Breath Sounds Cardiovascular: Irregularly Irregular, Tachycardia Gastrointestinal: Normal Bowel Sounds, No Pulsatile Mass, Non Tender, Soft Rectal: Deferred Extremity: Normal Capillary Refill, Normal Inspection, No Pedal Edema Neurologic/Psychiatric: Alert, Oriented x3, No Motor/Sensory Deficits, head of marketing analytics II- XII Norm as Tested Skin: Normal Color, Warm/Dry Progress/Results/Core Measures Suspected Sepsis SIRS Temperature: Pulse: Respiratory Rate: Laboratory Tests 01/14/23 13:48: White Blood Count 9.2 Blood Pressure / Mean: Laboratory Tests 01/14/23 13:48: Creatinine 0.83, INR Comment 1.1, Platelet Count 208, Total Bilirubin 0.9 Results/Orders Lab Results Laboratory Tests Test 01/14/23 13:48 Range/Units White Blood Count 9.2 4.3-11.0 10^3/uL Red Blood Count 5.58 H 3.80-5.11 10^6/uL Hemoglobin 15.6 11.5-16.0 g/dL Hematocrit 47 35-52 % Mean Corpuscular Volume 84 80-99 fL Mean Corpuscular Hemoglobin 28 25-34 pg Mean Corpuscular Hemoglobin Concent 33 32-36 g/dL Red Cell Distribution Width 12.7 10.0-14.5 % Platelet Count 208 130-400 10^3/uL Mean Platelet Volume 12.4 H 9.0-12.2 fL Immature Granulocyte % (Auto) 0 % Neutrophils (%) (Auto) 69 42-75 % Lymphocytes (%) (Auto) 22 12-44 % Monocytes (%) (Auto) 7 0-12 % Eosinophils (%) (Auto) 1 0-10 % Basophils (%) (Auto) 0 0-10 % Neutrophils # (Auto) 6.3 1.8-7.8 10^3/uL Lymphocytes # (Auto) 2.0 1.0-4.0 10^3/uL Monocytes # (Auto) 0.7 0.0-1.0 10^3/uL Eosinophils # (Auto) 0.1 0.0-0.3 10^3/uL Basophils # (Auto) 0.0 0.0-0.1 10^3/uL Immature Granulocyte # (Auto) 0.0 0.0-0.1 10^3/uL Prothrombin Time 14.8 H 12.2-14.7 SEC INR Comment 1.1 0.8-1.4 Activated Partial Thromboplast Time 35 24-35 SEC Urine Color YELLOW Urine Clarity CLOUDY Urine pH 7.0 5-9 Urine Specific [place] 1.020 1.016-1.022 Urine Protein TRACE H NEGATIVE Urine Glucose (UA) NEGATIVE NEGATIVE Urine Ketones TRACE H NEGATIVE Urine Nitrite NEGATIVE NEGATIVE Urine Bilirubin NEGATIVE NEGATIVE Urine Urobilinogen 0.2 < = 1.0 MG/DL Urine Leukocyte Esterase 1+ H NEGATIVE Urine RBC (Auto) NEGATIVE NEGATIVE Urine RBC NONE /HPF Urine WBC 2-5 /HPF Urine Squamous Epithelial Cells 0-2 /HPF Urine Renal Epithelial Cells 0-2 /HPF Urine Crystals NONE /LPF Urine Bacteria FEW H /HPF Urine Casts PRESENT /LPF Urine Hyaline Casts 0-2 H /LPF Urine Mucus MODERATE H /LPF Urine Culture Indicated YES Sodium Level 142 135-145 MMOL/L Potassium Level 4.2 3.6-5.0 MMOL/L Chloride Level 104 98-107 MMOL/L Carbon Dioxide Level 25 21-32 MMOL/L Anion Gap 13 5-14 MMOL/L Blood Urea Nitrogen 11 7-18 MG/DL Creatinine 0.83 0.60-1.30 MG/DL Estimat Glomerular Filtration Rate 73 BUN/Creatinine Ratio 13 Glucose Level 169 H 70-105 MG/DL Calcium Level 11.7 H 8.5-10.1 MG/DL Corrected Calcium 11.3 H 8.5-10.1 MG/DL Magnesium Level 1.5 L 1.6-2.4 MG/DL Total Bilirubin 0.9 0.1-1.0 MG/DL Aspartate Amino Transf (AST/SGOT) 17 5-34 U/L Alanine Aminotransferase (ALT/SGPT) 14 0-55 U/L Alkaline Phosphatase 147 H 40-136 U/L Troponin I < 0.30 <0.30 NG/ML Pro-B-Type Natriuretic Peptide 515.5 H <450.0 PG/ML Total Protein 7.8 6.4-8.2 GM/DL Albumin 4.5 3.2-4.5 GM/DL Lipase 21 8-78 U/L My Orders Orders - ZORAN CRAWFORD MD Cbc With Automated Diff (01/14/23 13:51) Magnesium (01/14/23 13:51) Chest 1 View Ap/Pa Only (01/14/23 13:51) Ekg Tracing (01/14/23 13:51) Comprehensive Metabolic Panel (01/14/23 13:51) Protime With Inr (01/14/23 13:51) Partial Thromboplastin Time (01/14/23 13:51) O2 (01/14/23 13:51) Monitor-Rhythm Ecg Trace Only (01/14/23 13:51) Ed Iv/Invasive Line Start (01/14/23 13:51) Lipase (01/14/23 13:51) Troponin I Fs (01/14/23 13:51) Probnp Fs (01/14/23 13:51) Ns Iv 1000 Ml (Sodium Chloride 0.9%) (01/14/23 13:51) Diltiazem Injection (Cardizem Injection) (01/14/23 13:51) Ct Head Wo (01/14/23 13:51) Ua Culture If Indicated (01/14/23 14:43) Magnesium 1 Gm/100 Ml Ivpb (Magnesium Cee (01/14/23 14:46) Urine Culture (01/14/23 13:48) Vital Signs/I&O 01/14/23 01/14/23 01/14/23 13:42 14:10 15:56 Temp 36.5 36.5 Pulse 101 123 89 Resp 16 16 B/P (MAP) 170/109 (129) 149/101 124/72 Pulse Ox 96 98 O2 Delivery Room Air Room Air Capillary Refill : Progress Note #1: Progress Note Potential diagnosis of atrial fibrillation with RVR, myocardial infarction, pneumonia, electrolyte imbalance, congestive heart failure, brain mass. Obtain peripheral IV access to send labs for blood count, comprehensive metabolic profile, troponin, proBNP, coagulation factors, magnesium, urinalysis. Chest x-ray to look for signs of effusion and/or infiltrate. Obtain electrocardiogram to document her rate and rhythm. Placed on cardiac threat monitoring analyst to watch for heart rate and rhythm. In my initial interpretation of her cardiac telemetry monitoring shows atrial fibrillation with RVR and rate of 130s. Administer normal saline 1 L IV fluid bolus for hydration, diltiazem 10 mg IV bolus to try and help improve her heart rate with the atrial fibrillation. CT scan of the head to evaluate for possible mass, sinusitis, tumor, stroke to cause her "zinging" in her brain Progress Note #2: Progress Note Complete blood count did not show elevation of her white blood cell count as it was at 9.2. She was not anemic as her hemoglobin was 15.6. Her comprehensive metabolic profile did not show acute significant abnormality with her basic electrolytes, renal function, hepatic function. She did have low magnesium level of 1.5 but it was up from 1.4 on the 24th. Her troponin was less than 0.3. Ordered a gram of magnesium to help with her hypomagnesemia. Will call and check with Dr. oL, the supervisor alteration workroom animal shelter manager for [place], and get his opinion for treatment and follow up on the patient since she did have improved heart rate down to the 80s-90s with the single dose of diltiazem 10 mg IV and NS 1 L IVF bolus. In my opinion, her 1 view chest xray did not show an acute process and her CT scan of head without contrast did not show acute intracranial hemorrhage or mass. Progress Note #3: Progress Note D/w Dr. Lo supervisor alteration workroom for cardiology and reviewed patient presentation and recent history with most recent ED visit on 12/27 and appointment coming up on Saturday 01/[address] Berry. With patient having improved heart rate and no longer having Atrial fibrillation with RVR he agreed with IV magnesium to help boost her magnesium level and continue with dosing of diltiazem to give more time for improved rate control. Keep appt Friday with Dr. Berry as scheduled. I updated patient on findings and reassuring results and response to Diltiazem bolus 10 mg IV. Will administer Magnesium 1 gm IV and have her continue other m edicines as prescribed and instructed most recently. Continue with increased oral magnesium dosing as well. ECG Initial ECG Impression Date: Jan 14, 2023 Initial ECG Impression Time: 13:48 Initial ECG Rate: 113 Initial ECG Rhythm: A Fib/Flutter Initial ECG Comparisson: Unchanged (12/27/2022) Comment On my personal interpretation and review of her electrocardiogram she shows atrial fibrillation with rapid ventricular response and a rate of 113 bpm. She also has PVCs present. QT interval 297 ms with a QTc interval 364 ms. She has no acute ST elevation. Overall appears similar to tracing from December 27, 2022. Diagnostic Imaging Diagonstic Imaging: Xray Plain Films/CT/US/NM/MRI: chest Comments [facility] [place], [place] NAME: TY PRICE [facility] REC#: [id number] PT STATUS: DEP ER : 1945 PHYSICIAN: ZORAN CRAWFORD MD ADMIT DATE: 01/14/23/ER FS Signed Date of Exam:01/14/23 CHEST 1 VIEW AP/PA ONLY HISTORY: Shortness of breath. TECHNIQUE: Frontal view of the chest. COMPARISON: 12/27/2022. FINDINGS: Lung volumes are large. No consolidation is seen. There is no pleural effusion or pneumothorax. The cardiac silhouette is normal in size. There is aortic atherosclerosis. There is right convex curvature of the thoracic spine. IMPRESSION: 1. No acute pulmonary abnormality. Dictated by: Dictated on workstation # [id number] Dict: 01/14/23 1437 Trans: 01/14/23 1640 [id number] Interpreted by: FAYE LU MD Electronically signed by: FAYE LU MD 01/14/23 1640 Reviewed: Reviewed by Me Diagonstic Imaging: CT Plain Films/CT/US/NM/MRI: head Comments [facility] [place] [place] NAME: TY PRICE [facility] REC#: [id number] PT STATUS: DEP ER : 1945 PHYSICIAN: ZORAN CRAWFORD MD ADMIT DATE: 01/14/23/ER FS Signed Date of Exam:01/14/23 CT HEAD WO PROCEDURE: CT head without contrast. TECHNIQUE: Multiple contiguous axial images were obtained through the brain without the use of intravenous contrast. Auto Exposure Controls were utilized during the CT exam to meet ALARA standards for radiation dose reduction. INDICATION: Weakness. COMPARISON: No prior studies are available for comparison. FINDINGS: The ventricles and sulci appear appropriate for the patient's age. No sulcal effacement or midline shift is identified. No acute intra-axial or extra-axial hemorrhage is detected. Cisterns are patent. Visualized paranasal sinuses are clear. IMPRESSION: No acute intracranial process is detected. Dictated by: Dictated on workstation # [id number] Dict: 01/14/23 1416 Trans: 01/14/23 1844 [id number] Interpreted by: CLARE LOGAN MD Electronically signed by: CLARE LOGAN MD 01/14/23 1844 Reviewed: Reviewed by Me Departure Impression Primary Impression: Atrial fibrillation with RVR Additional Impression: Hypomagnesemia Disposition: 01 HOME, SELF-CARE Condition: Stable Departure-Patient Inst. Decision time for Depature: 15:46 Referrals: VANNA KAUR MD (PCP/Family) Primary Care Physician Patient Instructions: Atrial Fibrillation and Atrial Flutter ED, Low Magnesium Level (DC) Add. Discharge Instructions: Continue taking your current medicines with the increased dose of diltiazem or Cardizem at 240 mg a day. Continue with your increased magnesium dosing by mouth as well to help bring up your magnesium levels. They are slowly improving but are still well low. Try to rest and take it easy at home. Follow-up with Dr. Berry on Friday as scheduled to discuss further treatment options for your atrial fibrillation. All discharge instructions reviewed with patient and/or family. Voiced understanding. ZORAN CRAWFORD MD Jan 14, 2023 14:03
[2023-01-14 14:09] LABS: BASOPHILS % (AUTO) 0 % (0-10); EOSINOPHILS # (AUTO) 0.1 10^3/uL (0.0-0.3); EOSINOPHILS % (AUTO) 1 % (0-10); HEMATOCRIT 47 % (35-52); HEMOGLOBIN 15.6 g/dL (11.5-16.0); LYMPHOCYTES % (AUTO) 22 % (12-44); MEAN CORPUSCULAR HEMOGLOBIN 28 pg (25-34); MEAN CORPUSCULAR HGB CONC 33 g/dL (32-36); MEAN CORPUSCULAR VOLUME 84 fL (80-99); MEAN PLATELET VOLUME 12.4 fL (9.0-12.2); MONOCYTES # (AUTO) 0.7 10^3/uL (0.0-1.0); MONOCYTES % (AUTO) 7 % (0-12); NEUTROPHILS # (AUTO) 6.3 10^3/uL (1.8-7.8); NEUTROPHILS % (AUTO) 69 % (42-75); PLATELET COUNT 208 10^3/uL (130-400); WHITE BLOOD COUNT 9.2 10^3/uL (4.3-11.0)
[2023-01-14 14:16] LABS: INR 1.1 (0.8-1.4); PROTHROMBIN TIME PATIENT 14.8 SEC (12.2-14.7)
--- NOTE | 2023-01-14 14:24 | Diagnostic Imaging Report ---
PROCEDURE: CT head without contrast. TECHNIQUE: Multiple contiguous axial images were obtained through the brain without the use of intravenous contrast. Auto Exposure Controls were utilized during the CT exam to meet ALARA standards for radiation dose reduction. INDICATION: Weakness. COMPARISON: No prior studies are available for comparison. FINDINGS: The ventricles and sulci appear appropriate for the patient's age. No sulcal effacement or midline shift is identified. No acute intra-axial or extra-axial hemorrhage is detected. Cisterns are patent. Visualized paranasal sinuses are clear. IMPRESSION: No acute intracranial process is detected. Dictated by: Dictated on workstation # [id number]
[2023-01-14 14:39] LABS: POTASSIUM 4.2 MMOL/L (3.6-5.0)
--- NOTE | 2023-01-14 14:39 | Diagnostic Imaging Report ---
HISTORY: Shortness of breath. TECHNIQUE: Frontal view of the chest. COMPARISON: 12/27/2022. FINDINGS: Lung volumes are large. No consolidation is seen. There is no pleural effusion or pneumothorax. The cardiac silhouette is normal in size. There is aortic atherosclerosis. There is right convex curvature of the thoracic spine. IMPRESSION: 1. No acute pulmonary abnormality. Dictated by: Dictated on workstation # [id number]
[2023-01-14 14:40] LABS: BILIRUBIN,TOTAL 0.9 MG/DL (0.1-1.0); CALCIUM 11.7 MG/DL (8.5-10.1); CREATININE SERUM 0.83 MG/DL (0.60-1.30); MAGNESIUM 1.5 MG/DL (1.6-2.4)
[2023-01-14 14:41] LABS: ALBUMIN 4.5 GM/DL (3.2-4.5); TOTAL PROTEIN 7.8 GM/DL (6.4-8.2)
[2023-01-14] MEDS ORDERED: MAGNESIUM 1 GM/100 ML IVPB 100 ML IV STA (14:46)
[2023-01-14 15:03] LABS: BILIRUBIN,URINE NEGATIVE (NEGATIVE); CLARITY,URINE CLOUDY; COLOR,URINE YELLOW; GLUCOSE, URINE (UA) NEGATIVE (NEGATIVE); KETONES,URINE TRACE (NEGATIVE); LEUKOCYTE ESTERASE ,URINE 1+ (NEGATIVE); NITRITE,URINE NEGATIVE (NEGATIVE); PROTEIN,URINE TRACE (NEGATIVE)
[2023-01-14 15:04] LABS: BACTERIA,URINE FEW /HPF; HYALINE CASTS, URINE 0-2 /LPF; RENAL EPITHELIAL CELLS,URINE 0-2 /HPF; SQUAMOUS EPITHELIAL CELL,UR 0-2 /HPF
[2023-01-14 15:56] VITALS: BP 124/72
== END 2023-01-14 15:57 | disposition home or self-care (01) ==
LOC: EDUNIT# 13:38 → ER FS 13:39
DX: I48.91 Unspecified atrial fibrillation (principal); E83.42 Hypomagnesemia; Z87.891 Personal history of nicotine dependence; Z28.310 Unvaccinated for COVID-19
CPT/HCPCS: 36415; 70450; 71045; 80053; 81000; 83690; 83735; 83880; 84484; 85025; 85610; 85730; 87088; 93005; 93041

== ENCOUNTER → 2023-02-06 | Outpatient (CLI) | payer MEDICARE, OTHER | LOC: CARD 10:48 | PROVIDERS: ATTEND Internal Medicine Cardiovascular Disease | DX: I34.0 Nonrheumatic mitral (valve) insufficiency (principal); I10 Essential (primary) hypertension; I25.10 Atherosclerotic heart disease of native coronary artery without angina pectoris | CPT/HCPCS: 93306 ==

== ENCOUNTER → 2023-02-26 | Outpatient (CLI) | payer MEDICARE, OTHER ==
[2023-02-26 14:01] VITALS: BP 126/64
--- NOTE | 2023-02-26 14:28 | Cardiology Stress Test Report ---
Stress Test Report Date of Procedure/Referring: Date of Procedure: Feb 26, 2023 PCP Huyen Billingsley MD Admitting Physician Admitting Physician: Attending Physician: Concepcion Ybarra Indications: cp Baseline Heart Rate: 72 Baseline Blood Pressure: Blood Pressure Systolic: 126 Blood Pressure Diastolic: 64 Baseline EKG: Baseline EKG: NSR Summary/Conclusion: Summary: Patient was unable to exercise, started on the treadmill and within 2 seconds patient was unable to continue. EKG was showing nondiagnostic changes. She had underlying atrial fibrillation with nondiagnostic EKG changes Conclusion: Inconclusive stress test, patient was unable to exercise more than 2 seconds on the treadmill. Nondiagnostic EKG changes Baseline atrial fibrillation persisted during test Recommend Lexiscan Myoview stress test. Copy Copies To 1: [facility]/SHAHANA ROSE MD Feb 26, 2023 14:28
== END ==
LOC: CARD 12:55
PROVIDERS: ATTEND Physician Assistant
DX: I48.91 Unspecified atrial fibrillation (principal)
CPT/HCPCS: 93017

== ENCOUNTER 2023-03-18 13:09 | Outpatient (RCR) | payer MEDICARE | END 2023-04-02 | disposition home or self-care (01) | LOC: ONC 13:09 | PROVIDERS: ATTEND Internal Medicine Hematology & Oncology | DX: Z53.9 Procedure and treatment not carried out, unspecified reason (principal) ==

== ENCOUNTER → 2023-04-08 | Outpatient (CLI) | payer MEDICARE ==
--- NOTE | 2023-04-08 14:07 | Diagnostic Imaging Report ---
INDICATION: Postmenopausal screening COMPARISON: Baseline FINDINGS: AP Spine L1-L4: [BMD (g/cm2): 1.542] [T-Score: 2.9] [Z-Score: 3.5] [BMD Previous: NA] [BMD % Change: NA] LT Hip Neck: [BMD (g/cm2): 0.867] [T-Score: -1.2] [Z-Score: 0.0] LT Hip Total: [BMD (g/cm2):0.940] [T-Score:-0.5] [Z-Score: 0.5] [BMD Previous: NA] [BMD % Change: NA] RT Hip Neck: [BMD (g/cm2):0.918] [T-Score:-0.9] [Z-Score:0.4] RT Hip Total: [BMD (g/cm2):0.959] [T-score:-0.4] [Z-Score:0.6] [BMD Previous:NA] [BMD % Change:NA] *Indicates significant change from prior examination based on 95% confidence level. World Health Organization criteria for BMD interpretation classify patients as Normal (T-score at or above -1.0), Osteopenic (T-score between -1.0 and -2.5) or Osteoporotic (T-score at or below -2.5). LIMITATIONS AND MODIFICATION: None. FRACTURE RISK (FRAX SCORE): The ten year probability of (%): Major Osteoporotic Fracture: [NA] Hip Fracture: [NA] IMPRESSION: 1. Normal bone mineral density. 2. Baseline examination. 3. See below National Osteoporosis Foundation guidelines on when to potentially initiate pharmacologic therapy. Based on the National Osteoporosis Foundation Guidelines, pharmacologic treatment should be initiated in any of the following, unless clinical conditions suggest otherwise: * Any patient with prior fragility fracture of the hip or vertebrae. A spine fracture indicates 5X risk for subsequent spine fracture and 2X risk for subsequent hip fracture. * Osteoporosis (T-score <-2.5). * Postmenopausal women and men age 50 and older with low bone mass/osteopenia (T-score between -1.0 and -2.5) by DXA and 10-year major osteoporotic fracture greater than 20% or a 10-year probability of hip fracture greater than 3%. These fracture risks are supplied above in the FRAX score, if applicable. * Clinician judgement and/or patient preferences may indicate treatment for people with 10-year fracture probabilities above or below these levels. Dictated by: Dictated on workstation # [id number]
== END ==
LOC: RAD 13:12
PROVIDERS: ATTEND Internal Medicine Hematology & Oncology
DX: C50.911 Malignant neoplasm of unspecified site of right female breast (principal); Z78.0 Asymptomatic menopausal state
CPT/HCPCS: 77080

== ENCOUNTER → 2023-04-09 | Outpatient (CLI) | payer MEDICARE, OTHER ==
[~2023-04-09] MED LIST changes: +REGADENOSON 0.4 MG/5 ML SYR (LEXISCAN) IV ONE
[2023-04-09] MEDS: CATHETER FLUSH 10 ML SYR IVP PRN ×2 (11:42→13:03)
[2023-04-09 13:01] VITALS: BP 155/73
--- NOTE | 2023-04-09 15:39 | Cardiology Stress Test Report ---
Stress Test Report Date of Procedure/Referring: Date of Procedure: Apr 09, 2023 PCP Huyen Billingsley MD Admitting Physician Admitting Physician: Attending Physician: Karsten Berry MD Baseline Heart Rate: 97 Baseline Blood Pressure: Blood Pressure Systolic: 155 Blood Pressure Diastolic: 73 Baseline Vitals Vital Signs Date Time Temp Pulse Resp B/P (MAP) Pulse Ox O2 Delivery O2 Flow Rate FiO2 04/09/23 13:01 97 16 155/73 (100) 97 Room Air Baseline EKG: Baseline EKG: A fib Summary After explaining the procedure to the patient, she signed a consent and then brought to the stress nuclear laboratory. Patient received 0.4 mg Lexiscan for stress test, ECG, heart rate and blood pressure were monitored continuously. Resting and stress dose of radio tracer were injected, imaging was acquired and reviewed in short axis, horizontal long axis and vertical long axis views. TID: 1.16 SSS: 4 SDS: 2 EF: 64 Patient tolerated Lexiscan well Baseline atrial fibrillation persisted during test Mild fixed defect at the anterior apical segment, reversible ischemia involving the mid to apical inferior wall Normal left ventricular size, ejection fraction 64% CC KARSTEN Moore MD Apr 09, 2023 15:39
== END ==
LOC: CARD 10:57
PROVIDERS: ATTEND Internal Medicine Cardiovascular Disease
DX: I10 Essential (primary) hypertension (principal); I25.10 Atherosclerotic heart disease of native coronary artery without angina pectoris
CPT/HCPCS: 78452; 93017; A9502

== ENCOUNTER 2023-04-23 11:33 | Day surgery (SDC) | payer MEDICARE ==
[~2023-04-23] VITALS: Ht 175.3 cm; Wt 98.0 kg
[2023-04-23] VITALS (11 sets, daily range): BP systolic 119–157; BP diastolic 66–89
[~2023-04-23 11:33] MED LIST changes: -REGADENOSON 0.4 MG/5 ML SYR (LEXISCAN) IV ONE
[2023-04-23] MEDS ORDERED: NS IV 1000 ML 1,000 ML IV SCH ×2 (12:00→14:45)
[2023-04-23] MEDS ORDERED: HEParin (CATH LAB) 2,000 ML IV ONE (12:23)
[2023-04-23] MEDS ORDERED: LIDOCAINE 1% INJ 20 ML VIAL ONE (12:23)
[2023-04-23] MEDS ORDERED: NS IV 1000 ML 1,000 ML ONE (12:23)
--- NOTE | 2023-04-23 12:31 | Diagnostic Imaging Report ---
INDICATION: Abnormal stress test. Frontal chest obtained at 11:55 a.m. compared to 01/14/2023. FINDINGS: There is cardiomegaly. Mediastinal silhouette is unremarkable. The lungs are clear. There is no pneumothorax or pleural fluid. IMPRESSION: Cardiomegaly with no acute process in the chest. Dictated by: Dictated on workstation # [id number]
[2023-04-23 12:41] LABS: HEMATOCRIT 44 % (35-52); HEMOGLOBIN 14.7 g/dL (11.5-16.0); MEAN CORPUSCULAR HEMOGLOBIN 29 pg (25-34); MEAN CORPUSCULAR HGB CONC 34 g/dL (32-36); MEAN CORPUSCULAR VOLUME 86 fL (80-99); MEAN PLATELET VOLUME 12.7 fL (9.0-12.2); PLATELET COUNT 186 10^3/uL (130-400); WHITE BLOOD COUNT 9.2 10^3/uL (4.3-11.0)
[2023-04-23] MEDS ORDERED: APIX5TAB PO (12:42)
[2023-04-23] MEDS ORDERED: DIPH25CA79 PO (12:42)
[2023-04-23] MEDS ORDERED: BACI1TAB8 PO (12:42)
[2023-04-23] MEDS ORDERED: POLY1DRO OP (12:42)
[2023-04-23] MEDS ORDERED: CYAN500T8 PO (12:42)
[2023-04-23] MEDS ORDERED: VNL37.5T PO (12:42)
[2023-04-23] MEDS ORDERED: ANAS1TAB50 PO (12:42)
[2023-04-23] MEDS ORDERED: DILT120C53 PO ×2 (12:42)
[2023-04-23] MEDS ORDERED: MAGN250T31 PO (12:42)
[2023-04-23] MEDS ORDERED: ATOR40TA70 PO (12:42)
[2023-04-23 12:52] LABS: INR 1.1 (0.8-1.4); PROTHROMBIN TIME PATIENT 14.5 SEC (12.2-14.7)
[2023-04-23 13:02] LABS: ALBUMIN 4.2 GM/DL (3.2-4.5); BILIRUBIN,TOTAL 0.9 MG/DL (0.1-1.0); CALCIUM 11.5 MG/DL (8.5-10.1); POTASSIUM 3.9 MMOL/L (3.6-5.0); TOTAL PROTEIN 7.3 GM/DL (6.4-8.2)
--- NOTE | 2023-04-23 13:46 | Cardiac Procedure Note-CS/ASA ---
Pre-Procedure Note Pre-Op Procedure Note Date of Available H&P: Apr 15, 2023 Date H&P Reviewed: Apr 23, 2023 Time H&P Reviewed: 13:45 History & Physical: H&P Reviewed, Patient Examed, No changes noted Pre-Operative Diagnosis: Coronary artery disease Moderate Sedation PreProcedure Time 13:45 ASA Score 3 Airway Lungs Heart ASA score ASA 1: a normal healthy patient ASA 2: a patient with a mild systemic disease (mid diabetes, controlled hypertension, obesity ASA 3: a patient with a severe systemic disease that limits activity (angina, COPD, prior Myocardial infarction) ASA 4: a patient with an incapacitating disease that is a constant threat to life (CHF, renal failure) ASA 5: a moribund patient not expected to survive 24 hrs. (ruptured aneurysm) ASA 6: a declared brain- patient whose organs are being harvested. For emergent operations, add the letter E after the classification Mallampati Classification Grade 3 Sedation Plan Analgesia, Amnesia, Plan communicated to team members, Discussed options with patient/fam, Discussed risks with patient/fam The patient is an appropriate candidate to undergo the planned procedure, sedation, and anesthesia. The patient immediately re-assessed prior to indication. SHAHANA MATOS MD Apr 23, 2023 13:46
[2023-04-23] MEDS ORDERED: fentaNYL INJ 100 MCG/2 ML AMP ONE (13:50)
[2023-04-23] MEDS ORDERED: NITRO DRIP 25000 MCG/D5W 250 ML IV ONE (13:50)
[2023-04-23] MEDS ORDERED: HEParin 1000 UNIT/ML (10ML VIAL) FOR BOLUS ONE (13:50)
[2023-04-23] MEDS ORDERED: MIDAZOLAM 5 MG/5 ML (VERSED) VIAL ONE (13:50)
[2023-04-23] MEDS ORDERED: VERAPAMIL 5 MG/2 ML (CALAN) VIAL IV ONE (13:50)
--- NOTE | 2023-04-23 14:39 | Discharge Inst-Post CATH ---
Discharge Inst-CATH/EP Problems Reviewed?: Yes Post Cardiac Cath/EP D/C Inst Follow Up/Plan Appointment with Dr. Berry's office in 2 to 4 weeks <b>CARDIAC CATH/EP PROCEDURE DISCHARGE INSTRUCTIONS</b> ACTIVITY * Go Home directly and rest. * Limit activity of the leg (or wrist if it was used) for 7 days including aer obics, swimming, jogging, bicycling, etc. * Restrict stair-climbing for 7 days if possible, if not, climb up with your non-cath leg, then bring together on the same step. * Avoid lifting, pushing, pulling or excessive movement of the affected extremi ty for 7 days. * Customary sexual activity may be resumed after 2 days-use caution not to use a position that strains or causes pain to the affected extremity. * No driving for 24 hours. * NO SMOKING. * Avoid straining for bowel movements for 7 days. * Gentle walking on level ground is allowed. * Returning to work will depend on the type of procedure and the results. Your doctor will discuss this with you. CALL YOUR DOCTOR FOR ANY OF THE FOLLOWING: *If bleeding from the puncture site occurs- Apply gentle pressure to site with clean cloth and call your doctor or EMS. * If a knot or lump forms under the skin, increases in size, or causes pain. * If bruising appears to be worsening or moving further down your leg instead of disappearing. * Temperature above 101 F. CARE OF YOUR GROIN INCISION; * Bruising or purple discoloration of the skin near the puncture site is common. * You may shower only, no bathtub bathing for 5 days. Be careful to avoid slipping as your leg may feel stiff. * If a closure device was used on your femoral artery, please see the attached guide regarding care of the device and your leg. * Leave dressing on FOR 24 hours. CARE OF YOUR WRIST INCISION; * Bruising or purple discoloration of the skin near the puncture site is common. * You may shower. * DO NOT submerge wrist. * Leave dressing on FOR 24 hours. SHAHANA BERRY MD Apr 23, 2023 14:39
--- NOTE | 2023-04-23 14:43 | Cardiac Cath Report ---
Cardiac Cath Report Physician (s)/Party Plan Dealer (s) Physician SHAHANA MATOS MD Pre-Procedure Diagnosis Pre-Procedure Diagnosis: Coronary artery disease Post-Procedure Note Procedure Start Date: Apr 23, 2023 Name of Procedure: Left heart catheterization Findings/Procedure Note PROCEDURE NOTE: 78-year-old lady with history of hypertension, hyperlipidemia, had an abnormal stress test, scheduled for cardiac catheterization possible PTCA. After explaining the procedure to the patient, all pros and cons were explained, all questions were answered. The patient signed the consent and then she was placed in the cardiac catheterization laboratory. Groin was prepped in SL fashion local anesthesia was used. Sheath placed in the right radial artery, [place] catheter was advanced to the left ventricular cavity, pressure was measured, pullback LV to aorta was done, engage the right and left coronary system, angiogram was done, at the end of the procedure sheath was removed. Vascular band was used. No complication noted. 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
== END 2023-04-23 17:37 | disposition home or self-care (01) ==
LOC: CATH 11:33
PROVIDERS: ATTEND Internal Medicine Cardiovascular Disease
DX: I25.10 Atherosclerotic heart disease of native coronary artery without angina pectoris (principal); I10 Essential (primary) hypertension; I48.0 Paroxysmal atrial fibrillation; R00.2 Palpitations; E78.2 Mixed hyperlipidemia; Z87.891 Personal history of nicotine dependence; Z79.01 Long term (current) use of anticoagulants; Z79.899 Other long term (current) drug therapy
CPT/HCPCS: 71045; 80053; 80061; 85027; 85610; 85730; 87081; 93005; 93458; C1894; 36415

== ENCOUNTER 2023-06-17 13:28 | Outpatient (RCR) | payer MEDICARE ==
[~2023-06-17 13:28] MED LIST changes: +ANAS1TAB50 PO; +ATOR40TA70 PO; +BACI1TAB8 PO; +CYAN500T8 PO; +DILT120C53 PO; +DIPH25CA79 PO; +MAGN250T31 PO; +POLY1DRO OP; +VNL37.5T PO
== END 2023-07-03 | disposition home or self-care (01) ==
LOC: ONC 13:28
PROVIDERS: ATTEND Internal Medicine Hematology & Oncology
DX: Z85.3 Personal history of malignant neoplasm of breast (principal); Z79.811 Long term (current) use of aromatase inhibitors
CPT/HCPCS: 99214

== ENCOUNTER 2023-09-16 13:32 | Outpatient (RCR) | payer MEDICARE | END 2023-10-02 | disposition home or self-care (01) | LOC: ONC 13:32 | PROVIDERS: ATTEND Internal Medicine Hematology & Oncology | DX: Z85.3 Personal history of malignant neoplasm of breast (principal); Z79.811 Long term (current) use of aromatase inhibitors ==